=== PATIENT | male | born 1955 | race Caucasian/White ===

== ENCOUNTER 2016-08-05 09:16 | Emergency (ER) | payer OTHER, BC ==
[~2016-08-05] VITALS: Ht 172.7 cm; Wt 100.0 kg
[~2016-08-05 09:16] MED LIST: ASPI325T PO; AUGM875 PO; LISI-363 PO; METO50CR PO; TAB-TAB
[2016-08-05 09:19] VITALS: BP 146/83; PULSE 60; RESP 20; TEMP 97.6; O2SAT 97
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
[2016-08-05] MEDS ORDERED: METO50TA11 PO (09:34)
[2016-08-05] MEDS ORDERED: ASPI325T PO (09:34)
[2016-08-05] MEDS ORDERED: LISI-515 PO (09:34)
[2016-08-05] MEDS ORDERED: MULTTAB67 PO (09:34)
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
[2016-08-05] MEDS ORDERED: IBUPROFEN 800 MG TAB PO ONE (10:45)
[2016-08-05] MEDS ORDERED: CYCL5TAB PO (10:59)
[2016-08-05] MEDS ORDERED: IBUP800T23 PO (10:59)
== END 2016-08-05 11:07 | disposition home or self-care (01) ==
LOC: NEPK 09:16
DX: M79.601 Pain in right arm (principal); I10 Essential (primary) hypertension; Z87.891 Personal history of nicotine dependence; Y93.F9 Activity, other caregiving; Y92.238 Other place in hospital as the place of occurrence of the external cause; Y99.0 Civilian activity done for income or pay
CPT/HCPCS: 73060; 99283